=== PATIENT | male | born 1950 | race Caucasian/White ===

== ENCOUNTER 2019-04-26 13:48 | Inpatient (IN) | payer MEDICARE, OTHER, SELFPAY ==
[2019-04-06 12:20] VITALS: BP 120/78; PULSE 66; RESP 20; TEMP 36.7; O2SAT 94; BMI 34.8
[2019-04-26] VITALS (12 sets, daily range): BP systolic 124–148; BP diastolic 61–96; PULSE 68–86; RESP 13–20; TEMP 36.3–37.1; O2SAT 93–100
--- NOTE | ~2019-04-26 | XR_ITS ---
EXAMINATION: XR knee LT 2V DATE: 04/26/2019 14:14 INDICATION: Total left knee arthroplasty. Postop. TECHNIQUE: 2 views of left knee were obtained. COMPARISON: Left knee radiographs 04/10/2019 FINDINGS: There is a total left knee arthroplasty without patellar resurfacing in near-anatomic align ment. No fracture. There is gas in the knee joint and soft tissues, consistent with recent surgery. A nterior skin amadou are noted. IMPRESSION: 1. Total left knee arthroplasty in near-anatomic alignment. Reviewed, dictated and finalized at location A. RTMENT ASSISTANT
--- NOTE | ~2019-04-26 | XR_ITS ---
EXAMINATION: XR chest 2V EXAM DATE: 04/28/2019 12:31 INDICATION: Syncope. Chest congestion. TECHNIQUE: Frontal and lateral projections of the chest obtained and reviewed. Comparison is made to prior examination from 04/26/2019. FINDINGS: The lungs are clear. There are no pleural effusions. The cardiomediastinal silhouette is within normal limits. There is no pneumothorax suspected. There are mild bony degenerative changes. There is no significant interval change. IMPRESSION: No acute cardiopulmonary findings. Reviewed, dictated and finalized at location A. D REPRESENTATIVE/HEALTH EDUCATION
--- NOTE | ~2019-04-26 | XR_ITS ---
EXAMINATION: XR chest 2V DATE: 04/26/2019 10:43 INDICATION: Sleep apnea. Preop. TECHNIQUE: Frontal and lateral views of the chest were obtained. COMPARISON: None. FINDINGS: The chest demonstrates clear lungs without pneumonia, pleural effusion, or pneumothorax. Th e heart size is normal. There is a compression fracture of L1, likely chronic. IMPRESSION: 1. No acute cardiopulmonary disease. Reviewed, dictated and finalized at location A. RER
--- NOTE | 2019-04-26 07:42 | WPDHPUPDATE1 ---
History and Physical Update Update Date/Time: 04/26/19 07:42 History and Physical has been reviewed, including an updated exam of the patient. There are NO changes in the patient's condition. Risks, benefits, and alternatives have been discussed and questions answered. Patient agrees to proceed with procedure.
--- NOTE | 2019-04-26 08:52 | WPDANESEPPF ---
Anes - Initial Pre Proc Eval Procedure: Operation Date: 04/26/19 10:30 Proposed Procedures p Left Total Knee Arthroplasty - Garrett López MD Date/Time: 04/26/19 08:52 Surgeon: Garrett López MD Pre Op Diagnosis: Left Knee DJD Patient Data Age: 68 Gender: M Height: 5 ft 5 in Weight: 94.9 kg Last Vital Signs Temp 36.7 C 04/06/19 12:20 Pulse 66 04/06/19 12:20 Resp 20 04/06/19 12:20 BP 120/78 04/06/19 12:20 Pulse Ox 94 04/06/19 12:20 Allergies Allergy/AdvReac Type Severity Reaction Status Date / Time amoxicillin Allergy Unknown Other Verified 04/10/19 11:39 cyclobenzaprine AdvReac Unknown Other Verified 04/10/19 11:39 [From Flexeril] Ahnnmsn-Rjp-Wok Reductase AdvReac Unknown Joint Pain Verified 04/10/19 11:39 Inhibitor sulfamethoxazole AdvReac Unknown Nausea and Verified 04/10/19 11:39 Vomiting Home Medications Medication Instructions Recorded Confirmed Type diclofenac sodium 1 % topical gel 2 gm TOPICAL QID PRN #100 gm 03/13/19 04/06/19 Rx aspirin [Aspir-81] 81 mg PO DAILY 04/06/19 04/06/19 History cetirizine [Zyrtec] 10 mg PO DAILY 04/06/19 04/06/19 History ezetimibe 10 mg PO DAILY 04/06/19 04/06/19 History fluticasone propionate [Flonase 1 spray INTRANASAL BID PRN 04/06/19 04/06/19 History Allergy Relief] furosemide [Lasix] 20 mg PO DAILY 04/06/19 04/06/19 History glucosamine sulfate [Glucosamine] 1,000 mg PO DAILY 04/06/19 04/06/19 History hydrochlorothiazide 25 mg PO DAILY 04/06/19 04/06/19 History hydrocodone-acetaminophen 1 tablet PO Q6H PRN 04/06/19 04/06/19 History lisinopril 20 mg PO DAILY 04/06/19 04/06/19 History metaxalone 800 mg PO TID PRN 04/06/19 04/06/19 History naproxen sodium 440 mg PO DAILY 04/06/19 04/06/19 History omeprazole 40 mg PO DAILY 04/06/19 04/06/19 History pseudoephedrine-guaifenesin 1 tablet PO BID PRN 04/06/19 04/06/19 History [Mucinex D] sildenafil [Viagra] 100 mg PO DAILY PRN 04/06/19 04/06/19 History turmeric root extract 500 mg PO DAILY 04/06/19 04/06/19 History chlorhexidine gluconate 4 % 1 applic TOPICAL ONCE #3785 ml 04/10/19 04/10/19 Rx topical liquid mupirocin 2 % topical ointment 1 applic TOPICAL BID #15 gm 04/10/19 Rx Patient hx anesthesia problems: none Family hx anesthesia problems: none PMFSH Past Medical History Medical History (Updated 04/26/19 @ 08:52 by Po Walsh MD) Arthritis Bilateral knee pain Chronic GERD Degenerative joint disease of knee Recent URI Sleep apnea Vision abnormalities Family History Family History Unknown Cardiovascular disease Social History Social History Smoking status: Never smoker Alcohol intake: current Anes - Eval Final PreProcedure Day of Procedure 04/26/19 08:52 Patient weight: obese Heart: regular rate and rhythm Lungs: clear to auscultation and normal air movement Airway: Mallampati scale class II Neurological: alert and oriented Last oral intake: >/= 8 hours ASA classification: III Emergent: no Anesthetic plan: proceed Anesthesia type and monitoring: general ETT Informed Consent: The patient's anesthetic plan and its attendant risks and benefits were discussed with the patient/family/POA. Questions were solicited and answers provided to the satisfaction of the patient/family/POA.
[2019-04-26 09:06] LABS: Hematocrit 45.3 % (42.0-52.0); Hemoglobin 15.6 g/dL (14.0-18.0); Mean Corpuscular HGB Conc 34.4 g/dl (32-36); Mean Corpuscular Hemoglobin 30.8 pg (26-34); Mean Corpuscular Volume 89.3 fl (80-100); Platelet Count Result 172 k/mm3 (150-375); Red Blood Count 5.07 M/mm3 (4.6-6.20); Red Cell Distribution Width 12.6 % (11.5-14.5); White Blood Count 3.8 K/mm3 (4.5-10.0)
--- NOTE | 2019-04-26 09:15 | SUR.PREOP ---
08- PT STATED THAT HE WAS DIAGNOSED WITH A UPPER RESP INFECTION ON WEDNESDAY AND STATED LEVIQUIN PER PCP. PT STATED STILL HAVING SOME SYMPTOMS. DR. GUIDO UPDATED AND SPOKE WITH PT AND DR. PABLO. CBC ORDERED. 899- CBC SENT TO LAB. DR. PABLO WOULD LIKE TO SEE PT. PT AND UPDATED.
[2019-04-26] MEDS: LACTATED RINGERS 1,000 ML 30 ML IV CONT ×2 (11:00→14:00)
--- NOTE | 2019-04-26 11:08 | SUR.PREOP ---
1040- dr. wilson to see pt in pre op. wbc count normal. dr. wilson ordered a chest x ray. pt to x ray. 1100- chest x ray normal. pt to go to or. or updated.
[2019-04-26] MEDS: ceFAZolin 2 GM/D5W 50 ML 2 GM/50 ML BAG IVPB ×2 (11:41→17:19)
[2019-04-26] MEDS: IBUPROFEN IV 800 MG/200 ML 800 MG/200 ML BAG 400 MG IVPB (11:45)
[2019-04-26] MEDS: GENTAMICIN BONE CEMENT REFOBACIN 1 EACH TOPICAL (12:21)
--- NOTE | 2019-04-26 13:47 | PM.OP ---
Procedure Note - Brief Procedure Note - Brief Date of procedure: 04/26/19 Pre-op diagnosis: Left Knee DJD Post-op diagnosis: same Procedure performed: L TKA Anesthesia: GETA Surgeon: Garrett López MD Estimated blood loss (mL): 100 Drains: No Complications: No immediate complications Condition: stable Disposition: PACU
--- NOTE | 2019-04-26 14:59 | OP_ITS ---
DATE OF PROCEDURE: 04/26/2019 PREOPERATIVE DIAGNOSIS: Left knee DJD. POSTOPERATIVE DIAGNOSIS: Left knee DJD. PROCEDURE: Left knee arthroplasty. ANESTHESIA: General. COMPLICATIONS: None. INDICATIONS: This is a 68-year-old male with end-stage left knee DJD. He was indicated for left total knee arthroplasty. DESCRIPTION OF PROCEDURE: The patient was taken to the operating room in stable condition and placed in supine position. General anesthesia was induced and the left lower extremity was sterilely from the toes to the thigh. A midline skin incision was made. Medial parapatellar arthrotomy was made. The patella was everted. There was severe arthrosis in medial and lateral compartments of the knee joint and minimal in the patellofemoral joint. An IM dov was placed in the femur. A distal femoral cut was made removing approximately 9 mm of bone from the high side of the femur. Next, the cutting block was placed, it measured 67.5 and that was placed in line with Whitesides line in the transepicondylar axis and then anterior, posterior, and chamfer cuts were made to the femur. The cuts were excellent. Next, an IM dov was placed in tibia and a transtibial cut was made removing approximately 10 mm of bone from the high side of the tibia. The tibia was planed to a smooth surface. Posterior osteophytes were removed from the femur with an osteotome. A 79 tibial trial was placed in line with one-third medial aspect of the tibial tubercle. The surface area was flushed. Next, the 67.5 femoral trial was placed and it fit well in the femur. A 10 CR polyethylene trial was placed. The knee came out to full extension. There was no flexion contracture. There was no anterior-posterior laxity. There was good tracking of the patella. There was no excessive rollback in flexion. The trial instrumentation was removed, and then a Biomet 79 mm and 67.5 mm of tibial and femoral component were both cemented into place and once the cement was hardened, a tibial component measuring 10 CR was inserted and locked into place. The knee was taken through range of motion, found to be very stable. There was good stability with varus valgus stress. There was good anterior-posterior stability. The tracking of the patella was within normal limits. The wound was irrigated thoroughly with a solution of sterile iodine and water and that happened over the next 3 minutes or so. The mixture was then washed out with a sterile water. The tourniquet was deflated. The bleeders were cauterized. The deep fascial layer was approximated with #1 Vicryl plus subcutaneous tissue approximated with 2-0 Vicryl, and skin approximated with amadou. Wounds were washed, placed sterile dressing. The patient was extubated. Rolando I MT: Ashwin
[2019-04-26] MEDS: HYDROMORPHONE HCL 1 MG/ML INJ 0.5 MG IV PUSH ×2 (15:15→15:27)
[2019-04-26] MEDS: MORPHINE SULFATE 4 MG/ML INJ IV PUSH ×2 (16:16→22:10)
[2019-04-26] MEDS: DOCUSATE SODIUM 100 MG CAPSULE PO (17:18)
[2019-04-26] MEDS: CELECOXIB 200 MG CAPSULE PO (17:18)
--- NOTE | 2019-04-26 19:31 | ADMGEN ---
This patient, Servando Kendall, was admitted to [facility] Room 330-01. Patient/family oriented to hospital policies and general routines including ID bracelet, bed and alarms, visiting hours, pain management, procedures, bathroom and other care routines, personal items, smoking policy, room service/diet, and visiting hours. Valuables list has been completed. Information on how to activate the Rapid Response Team has been discussed. Patient/Family are encouraged to report perceived risks to care and to ask questions if they do not understand what they are told or what they should do. Returned from OR per [ BED C/O PAIN MEDICATED WITH MORPHINE MOVES TOES SENSATION NORMAL DRESSING DRY AND INTACT.]
[2019-04-26] MEDS: PANTOPRAZOLE 40 MG TABLET PO (21:18)
[2019-04-26] MEDS: DIAZEPAM 5 MG TABLET PO (22:10)
[2019-04-26] MEDS: ONDANSETRON INJ 4 MG/2 ML VIAL IV PUSH (22:10)
--- NOTE | 2019-04-27 00:09 | PM.IMCN ---
Assessment and Plan Assessment and plan (1) Total knee replacement status: Code(s): Z96.659 - Presence of unspecified artificial knee joint Status: Acute Assessment and Plan: Postop care per Dr. López. Patient has bilateral SCDs on. Varun wrap to the left. Pain management per Dr. López. The patient has been continued to complain of some discomfort. I would try to reposition him and feel that is more of a sciatic pain that is going down the left leg. DVT prophylaxis per ortho. He has bilateral SCDs (2) HTN (hypertension) with goal to be determined: Code(s): I10 - Essential (primary) hypertension Status: Chronic Assessment and Plan: Continue with lisinopril and Lasix. (3) Hyperlipidemia: Code(s): E78.5 - Hyperlipidemia, unspecified Status: Chronic Assessment and Plan: Patient was having some cramping in his legs with atorvastatin and was taken off of that. He is on Zetia (4) Sleep apnea: Code(s): G47.30 - Sleep apnea, unspecified Status: Acute Assessment and Plan: Patient brought his own CPAP. HPI Data of Consult Consult date: 04/26/19 Requesting Physician: Garrett López MD Primary Care Provider: Yasmeen Krishna, Consult Narrative Narrative: Servando Kendall is a 68 year old male who electively underwent a left total knee arthroplasty today per Dr. López. The patient stated he tried conservative measures such as anti-inflammatories. The patient is complaining of some left knee pain at this time. He also complains having left sciatica pain as well. Please see operative note. Patient had some cramping in his legs in the past and was taken off of his atorvastatin and placed on different cholesterol medication. He stated it has been better since then. Date of service is 04/26/2019 Review of Systems Review of Systems: Narrative: He has sleep apnea brought his CPAP machine All systems reviewed & are unremarkable except as noted in HPI and below Constitutional: Constitutional: Reports as per HPI and Reports no additional constitutional complaints Eyes: Eyes: Reports as per HPI and Reports no additional eye complaints ENT: Reports system reviewed and no additional complaints, except as documented and Reports Normal hearing present Cardiovascular: Cardiovascular: Reports no additional cardiovascular complaints Respiratory: Respiratory: Reports no additional respiratory complaints and Reports no additional respiratory complaints Gastrointestinal: Gastrointestinal: Reports as per HPI and Reports no additional gastrointestinal complaints Musculoskeletal: Musculoskeletal: Reports no additional musculoskeletal complaints Integumentary/Breasts: Skin/Breast: Reports system reviewed and no additional complaints, except as docu and Reports as per HPI Neurologic: Reports system reviewed and no additional complaints, except as documented, Reports as per HPI and Reports Normal hearing present Psychiatric: Psychiatric: Reports no additional psychiatric complaints and Reports as per HPI Endocrine: Endocrine: Reports no additional endocrine complaints Hematologic/Lymphatic: Hematologic/Lymphatic: Reports no additional hematologic/lymphatic complaints Allergic/Immunologic: Allergic/Immunologic: Reports no additional allergic/immunologic complaints [facility] Past Medical History Medical History (Updated 04/27/19 @ 00:28 by Emily Ortez NP) Arthritis Bilateral knee pain CAD (coronary artery disease) Chronic GERD Degenerative joint disease of knee GERD with apnea Herniated lumbar intervertebral disc HTN (hypertension) with goal to be determined Hyperlipidemia Recent URI Sleep apnea Vision abnormalities Surgical History Surgical History (Updated 04/27/19 @ 00:28 by Emily Ortez NP) H/O vasectomy With a vasovasostomy Total knee replacement status Family History Family History (Updated 04/27/19 @ 00:31 by Emily Crowder
[2019-04-27] MEDS: MORPHINE SULFATE 4 MG/ML INJ IV PUSH ×2 (00:33→04:56)
[2019-04-27 01:25] VITALS: PULSE 74; O2SAT 96
[2019-04-27] MEDS: ceFAZolin 2 GM/D5W 50 ML 2 GM/50 ML BAG IVPB ×2 (03:20→10:58)
[2019-04-27] MEDS: DIAZEPAM 5 MG TABLET PO ×2 (06:28→14:46)
[2019-04-27 06:52] VITALS: BP 168/96; PULSE 69; RESP 18; TEMP 36.4; O2SAT 96
[2019-04-27 07:07] LABS: Basophils Percent Auto 0.1 % (0.2-1.2); Eosinophils Percent Auto 0.2 % (0-4.4); Hematocrit 42.4 % (42.0-52.0); Hemoglobin 14.4 g/dL (14.0-18.0); Immature Granulocyte Absolute 0.02 K/mm3 (0.00-0.031); Immature Granulocyte Percent A 0.2 % (0-0.5); Lymphocytes Absolute Auto 1.21 K/mm3 (0.9-3.2); Lymphocytes Percent Auto 13.6 % (18.3-44.2); Mean Corpuscular Hemoglobin 30.8 pg (26-34); Mean Corpuscular Volume 90.8 fl (80-100); Mean Platelet Volume 10.1 fl (7.4-10.4); Neutrophils Absolute Auto 6.6 K/mm3 (1.3-6.7); Neutrophils Percent Auto 74.9 % (45.5-73.1); Platelet Count Result 177 k/mm3 (150-375); Red Blood Count 4.67 M/mm3 (4.6-6.20); Red Cell Distribution Width 12.4 % (11.5-14.5); White Blood Count 8.9 K/mm3 (4.5-10.0)
[2019-04-27 07:07] LABS: Blood Urea Nitrogen 16 mg/dL (9-20); Calcium 8.9 mg/dL (8.4-10.2); Carbon Dioxide 27 mmol/L (22-30); Chloride 97 mmol/L (98-107); Estimated CRCL calculation 64 ml/min; Estimated Glomerular Filt Rate > 60; Glucose 120 mg/dL (75-110); Potassium 4.1 mmol/L (3.4-5.0); Sodium 132 mmol/L (137-145)
[2019-04-27 07:08] LABS: Magnesium 1.9 mg/dL (1.6-2.3)
[2019-04-27] MEDS: CELECOXIB 200 MG CAPSULE PO ×2 (08:31→16:55)
[2019-04-27] MEDS: DOCUSATE SODIUM 100 MG CAPSULE PO ×2 (08:31→16:55)
[2019-04-27] MEDS: ASPIRIN 325 MG ENTERIC TABLET 650 MG PO (08:31)
[2019-04-27 08:33] VITALS: BP 127/70; PULSE 91; RESP 18; O2SAT 98
--- NOTE | 2019-04-27 08:34 | PC.NURSE ---
Pt refused to take our meds. He took his own Protonix, Zetia, Lasix, HCTZ, Lisinopril.
--- NOTE | 2019-04-27 09:54 | P.PNOP_ITS ---
Progress Note: A&P Assessment and Plan (1) Total knee replacement status: Qualifiers: Laterality: left Qualified Code(s): Z96.652 - Presence of left artificial knee joint <Sarah Doll ELDERLY SITTER - Last Filed: 04/27/19 11:46> Code(s): Z96.659 - Presence of unspecified artificial knee joint <Sarah Dallasheri [facility] - Last Filed: 04/27/19 11:46> Status: Acute <Sarah Doll [facility] - Last Filed: 04/27/19 11:46> Assessment and Plan: POD #1: Left TKA Continue PT/OT. WBAT with walker. Continue pain control. Ice. No pillows under knee. Continue DVT prophylaxis with aspirin. Incentive spirometry. SCDs. Monitor dressing. To be changed prior to discharge. Dispo: Home with home health pending progress with PT/OT. <Sarah Haynes Lavon [facility] - Last Filed: 04/27/19 11:46> Subjective Subjective Date/Time Seen: 04/27/19 09:54 <Sarah Dallasheri [facility] - Last Filed: 04/27/19 11:46> Post Op day: 1 <Sarah Haynes Lavon ELDERLY SITTER - Last Filed: 04/27/19 11:46> Principal diagnosis: Left TKA <Sarah Dallasheri [facility] - Last Filed: 04/27/19 11:46> Review of Systems Review of Systems: All systems reviewed & are unremarkable except as noted in HPI and below <Sarah RiosIvis Doll ELDERLY SITTER - Last Filed: 04/27/19 11:46> Constitutional: Constitutional: Denies chills, Denies fever(s) and Denies night sweats <Saarh Haynes Lavon [facility] - Last Filed: 04/27/19 11:46> Cardiovascular: Cardiovascular: Denies chest pain and Denies lightheadedness <Sarah Dallasheri [facility] - Last Filed: 04/27/19 11:46> Respiratory: Respiratory: Denies cough and Denies dyspnea <Sarah RiosIvis Doll [facility] - Last Filed: 04/27/19 11:46> Gastrointestinal: Gastrointestinal: Denies constipation, Denies diarrhea, Denies nausea and Denies vomiting <Sarah Doll [facility] - Last Filed: 04/27/19 11:46> Genitourinary: Genitourinary: Reports urinary frequency and Denies urinary hesitancy <Sarah Doll [facility] - Last Filed: 04/27/19 11:46> Musculoskeletal: Musculoskeletal: Reports arthralgias (Left Knee ), Reports joint swelling (Left Knee ), Denies numbness and Denies tingling <Sarah Doll [facility] - Last Filed: 04/27/19 11:46> Exam Const: General: comfortable and no acute distress <Sarah Doll [facility] - Last Filed: 04/27/19 11:46> Resp: Effort & Inspection: normal respiratory effort <Sarah Doll [facility] - Last Filed: 04/27/19 11:46> Cardio: Rate: regular rate <Sarah Doll [facility] - Last Filed: 04/27/19 11:46> Rhythm: regular rhythm <Sarah Doll [facility] - Last Filed: 04/27/19 11:46> GI: Inspection: non-distended <Sarah Doll [facility] - Last Filed: 04/27/19 11:46> Skin: General skin exam: normal color <Sarah Doll [facility] - Last Filed: 04/27/19 11:46> Neuro: Cognition (Neuro): normal cognition <Sarah Doll [facility] - Last Filed: 04/27/19 11:46> Sensory Exam: normal sensation <Sarah Doll [facility] - Last Filed: 04/27/19 11:46> Extrem: Right lower extremity: normal to inspection, full ROM, normal capillary refill and knee Details: normal to inspection and normal ROM; no tenderness and no swelling <Sarah Doll [facility] - Last Filed: 04/27/19 11:46> Left lower extremity: normal to inspection, normal capillary refill, knee Details: tenderness (Diffuse ), swelling (Mild consistent with recent surgery ) and abnormal ROM (limited due to recent surgical intervention. ) and foot (2+ pedal pulses. +ankle dorsiflexion/plantarflexion. Moves toes. ) Details: normal capillary refill, vascular exam Details: dorsalis pedis pulse present and sales vendor
--- NOTE | 2019-04-27 09:54 | PM.PNORT ---
Progress Note: A&P Assessment and Plan (1) Total knee replacement status: Qualifiers: Laterality: left Qualified Code(s): Z96.652 - Presence of left artificial knee joint <Sarah Doll GAMBRELER HELPER - Last Filed: 04/27/19 11:46> Code(s): Z96.659 - Presence of unspecified artificial knee joint <Sarah Dallasheri [facility] - Last Filed: 04/27/19 11:46> Status: Acute <Sarah Doll [facility] - Last Filed: 04/27/19 11:46> Assessment and Plan: POD #1: Left TKA Continue PT/OT. WBAT with walker. Continue pain control. Ice. No pillows under knee. Continue DVT prophylaxis with aspirin. Incentive spirometry. SCDs. Monitor dressing. To be changed prior to discharge. Dispo: Home with home health pending progress with PT/OT. <Sarah Haynes Lavon [facility] - Last Filed: 04/27/19 11:46> Subjective Subjective Date/Time Seen: 04/27/19 09:54 <Sarah Dallasheri [facility] - Last Filed: 04/27/19 11:46> Post Op day: 1 <Sarah Haynes Lavon GAMBRELER HELPER - Last Filed: 04/27/19 11:46> Principal diagnosis: Left TKA <Sarah Dallasheri [facility] - Last Filed: 04/27/19 11:46> Review of Systems Review of Systems: All systems reviewed & are unremarkable except as noted in HPI and below <Sarah RiosIvis Doll GAMBRELER HELPER - Last Filed: 04/27/19 11:46> Constitutional: Constitutional: Denies chills, Denies fever(s) and Denies night sweats <Sarah Haynes Lavon [facility] - Last Filed: 04/27/19 11:46> Cardiovascular: Cardiovascular: Denies chest pain and Denies lightheadedness <Sarah Dallasheri [facility] - Last Filed: 04/27/19 11:46> Respiratory: Respiratory: Denies cough and Denies dyspnea <Sarah RiosIvis Doll [facility] - Last Filed: 04/27/19 11:46> Gastrointestinal: Gastrointestinal: Denies constipation, Denies diarrhea, Denies nausea and Denies vomiting <Sarah Doll [facility] - Last Filed: 04/27/19 11:46> Genitourinary: Genitourinary: Reports urinary frequency and Denies urinary hesitancy <Sarah Doll [facility] - Last Filed: 04/27/19 11:46> Musculoskeletal: Musculoskeletal: Reports arthralgias (Left Knee ), Reports joint swelling (Left Knee ), Denies numbness and Denies tingling <Sarah Doll [facility] - Last Filed: 04/27/19 11:46> Exam Const: General: comfortable and no acute distress <Sarah Doll [facility] - Last Filed: 04/27/19 11:46> Resp: Effort & Inspection: normal respiratory effort <Sarah Doll [facility] - Last Filed: 04/27/19 11:46> Cardio: Rate: regular rate <Sarah Doll [facility] - Last Filed: 04/27/19 11:46> Rhythm: regular rhythm <Sarah Doll [facility] - Last Filed: 04/27/19 11:46> GI: Inspection: non-distended <Sarah Doll [facility] - Last Filed: 04/27/19 11:46> Skin: General skin exam: normal color <Sarah Doll [facility] - Last Filed: 04/27/19 11:46> Neuro: Cognition (Neuro): normal cognition <Sarah Doll [facility] - Last Filed: 04/27/19 11:46> Sensory Exam: normal sensation <Sarah Doll [facility] - Last Filed: 04/27/19 11:46> Extrem: Right lower extremity: normal to inspection, full ROM, normal capillary refill and knee Details: normal to inspection and normal ROM; no tenderness and no swelling <Sarah Doll [facility] - Last Filed: 04/27/19 11:46> Left lower extremity: normal to inspection, normal capillary refill, knee Details: tenderness (Diffuse ), swelling (Mild consistent with recent surgery ) and abnormal ROM (limited due to recent surgical intervention. ) and foot (2+ pedal pulses. +ankle dorsiflexion/plantarflexion. Moves toes. ) Details: normal capillary refill, vascular exam Details: dorsalis pedis pulse present and posterior tibial pulse present and motor-sensory exam light-touch normal; no tenderness <GUSTAVO Dumas - Last Filed: 04/27/19 11:46> Other: Left TKA dressing c/d/i. Thigh soft, nontender. +ankle dorsiflexion/plantarflexion. Moves toes. Sensation intact to light touch. <GUSTAVO Dumas - Last Filed: 04/27/19 11:46> Psych: Mental Status: mental status grossly normal <GUSTAVO Dumas - Last Filed: 04/27/19 11:46> Affec
--- NOTE | 2019-04-27 13:17 | WPDANESPN ---
Anes - Prog Note Post-Op Date/Time: 04/27/19 13:17 Cardiovascular status: normal Respiratory status: normal Airway patency: baseline Mental status: baseline Post-Op hydration status: normal Vital Signs: Last Vital Signs Temp 36.4 C 04/27/19 06:52 Pulse 91 04/27/19 08:33 Resp 18 04/27/19 08:33 BP 127/70 04/27/19 08:33 Pulse Ox 98 04/27/19 08:33 I/O: Intake & Output 04/26/19 04/27/19 04/27/19 23:59 07:59 15:59 Intake Total 450 1070 120 Output Total 1100 Balance 450 -30 120 Laboratory Tests 04/27/19 06:48 04/27/19 06:47 04/27/19 04/27/19 04/27/19 06:47 06:47 06:48 WBC 8.9 RBC 4.67 Hgb 14.4 Hct 42.4 MCV 90.8 MCH 30.8 MCHC 34.0 RDW 12.4 Plt Count 177 MPV 10.1 Immature Gran % (Auto) 0.2 Neut % (Auto) 74.9 H Lymph % (Auto) 13.6 L Lamar % (Auto) 11.0 H Eos % (Auto) 0.2 Baso % (Auto) 0.1 L Lymph # (Auto) 1.21 Lamar # (Auto) 1.0 H Eos # (Auto) 0.0 Baso # (Auto) 0.0 Abs Immat Gran (auto) 0.02 Absolute Neuts (auto) 6.6 Absolute Nucleated RBC 0.0 Nucleated RBC % 0.0 Sodium 132 L Potassium 4.1 Chloride 97 L Carbon Dioxide 27 BUN 16 Creatinine 1.00 Estim Creat Clear Calc 64 Estimated GFR > 60 Glucose 120 H Calcium 8.9 Magnesium 1.9 Post-procedural complaints: none Patient Feedback: Patient satisfied with anesthetic care.
[2019-04-27 14:00] VITALS: BP 116/66; PULSE 83; RESP 18; TEMP 36.6; O2SAT 97
--- NOTE | 2019-04-27 15:07 | PM.IMPN ---
Progress Note: A&P Assessment and Plan (1) Total knee replacement status: Qualifiers: Laterality: left Qualified Code(s): Z96.652 - Presence of left artificial knee joint Code(s): Z96.659 - Presence of unspecified artificial knee joint Status: Acute Assessment and Plan: Postop care day 1, pt having severe left knee pain, pt received morphine shots in the night, states he never got a nerve block may benefit from one now. Pt is having diazepam for leg cramps, morphine and percocet for pain. Continue ASA for anticoagulation. Continue PT as tolerated. [place] home tomorrow with home health. (2) HTN (hypertension) with goal to be determined: Code(s): I10 - Essential (primary) hypertension Status: Chronic Assessment and Plan: Continue with lisinopril and Lasix. (3) Hyperlipidemia: Code(s): E78.5 - Hyperlipidemia, unspecified Status: Chronic Assessment and Plan: Pt is on Zetia (4) Sleep apnea: Code(s): G47.30 - Sleep apnea, unspecified Status: Acute Assessment and Plan: Patient brought his own CPAP. Used his machine yesterday. Subjective Date/time seen: 04/27/19 15:07 Interval history: Servando Kendall is a 68 year old male who electively underwent a left total knee arthroplasty today per Dr. López. Pt is in a lot of pain states he never received a nerve block prior to surgery so has been receiving morphine shots throughout the night. May benefit from a nerve block now, orthopedics deciding. Review of Systems Review of Systems: All systems reviewed & are unremarkable except as noted in HPI and below Cardiovascular: Cardiovascular: Denies no additional cardiovascular complaints Respiratory: Respiratory: Denies no additional respiratory complaints, Denies cough, Denies dyspnea and Denies dyspnea on exertion Gastrointestinal: Gastrointestinal: Denies no additional gastrointestinal complaints Musculoskeletal: Musculoskeletal: Reports as per HPI Comments: Severe knee pain Neurologic: Denies confusion, Denies headache(s) and Denies numbness Exam Const: General: cooperative and healthy appearing; No in distress Nutritional Appearance: overweight Orientation/consciousness: oriented to person HENMT: Head: normal to inspection Resp: Effort & Inspection: no respiratory distress Auscultation: no rhonchi and no wheezes Cardio: Rate: regular rate Rhythm: regular rhythm GI: Inspection: normal to inspection GI Palp: No abdominal tenderness, No Guarding due to palpation present (GI) and No Hepatomegaly present Auscultation: normal bowel sounds Neuro: General: oriented to person Extrem: Other: Left knee with polar ice machine on Objective Data Vital Signs Vital Signs: Vital Signs - 24 hr 04/26/19 15:30 04/26/19 15:45 04/26/19 16:15 Temperature Pulse Rate 71 71 70 Respiratory Rate 16 16 16 Blood Pressure 143/77 H 140/96 H 138/68 Pulse Oximetry 94 94 95 04/26/19 19:02 04/26/19 21:51 04/27/19 01:25 Temperature 36.9 C 36.7 C Pulse Rate 68 86 74 Respiratory Rate 16 16 Blood Pressure 138/61 141/75 H Pulse Oximetry 95 98 96 04/27/19 06:52 04/27/19 08:33 04/27/19 14:00 Temperature 36.4 C 36.6 C Pulse Rate 69 91 83 Respiratory Rate 18 18 18 Blood Pressure 168/96 H 127/70 116/66 Pulse Oximetry 96 98 97 Intake/Output Intake/Output: Intake & Output 04/24/19 04/25/19 04/26/19 04/27/19 23:59 23:59 23:59 23:59 Intake Total 2300 1430 Output Total 1100 Balance 2300 330 Meds/Results Medications: Active Medications Generic Name Dose Route Start Last Admin Trade Name Freq PRN Reason Stop Dose Admin Acetaminophen 1,000 mg 04/26/19 13:48 Tylenol Tablet PO Q6H PRN Mild Pain (1-3) Aspirin 650 mg 04/27/19 09:00 04/27/19 08:31 Aspirin Ec PO 650 mg DAILY [facility] Administration Celecoxib 200 mg 04/26/19 17:00 04/27/19 08:31 Celebrex PO 200 mg BIDWM [facility] Admi
[2019-04-27 20:12] VITALS: PULSE 80; RESP 16; O2SAT 97
[2019-04-27 20:18] VITALS: BMI 34.2
[2019-04-27] MEDS: PANTOPRAZOLE 40 MG TABLET PO (20:52)
[2019-04-27 22:21] VITALS: BP 140/73; PULSE 75; RESP 16; TEMP 37; O2SAT 95
[2019-04-28] VITALS (11 sets, daily range): BP systolic 102–142; BP diastolic 58–79; PULSE 70–100; RESP 16; TEMP 37.1; O2SAT 93–98; BMI 34.2
[2019-04-28] MEDS: DIAZEPAM 5 MG TABLET PO ×3 (02:02→21:03)
[2019-04-28 06:35] LABS: Hematocrit 41.2 % (42.0-52.0); Hemoglobin 13.7 g/dL (14.0-18.0); Mean Corpuscular HGB Conc 33.3 g/dl (32-36); Mean Corpuscular Hemoglobin 30.9 pg (26-34); Mean Platelet Volume 10.4 fl (7.4-10.4); Platelet Count Result 156 k/mm3 (150-375); Red Blood Count 4.43 M/mm3 (4.6-6.20); Red Cell Distribution Width 12.7 % (11.5-14.5); White Blood Count 7.1 K/mm3 (4.5-10.0)
[2019-04-28 06:51] LABS: Blood Urea Nitrogen 16 mg/dL (9-20); Calcium 8.7 mg/dL (8.4-10.2); Carbon Dioxide 30 mmol/L (22-30); Chloride 96 mmol/L (98-107); Estimated CRCL calculation 70 ml/min; Estimated Glomerular Filt Rate > 60; Glucose 137 mg/dL (75-110); Potassium 3.8 mmol/L (3.4-5.0); Sodium 136 mmol/L (137-145)
[2019-04-28 09:01] LABS: Glucose Point of Care 137 (65-105)
--- NOTE | 2019-04-28 09:29 | PCPTNOTE ---
Patient unable to be seen by PT this AM secondary to near rapid response while sitting on toilet with OT, RN aware, will follow up this afternoon if treatment is appropriate.
[2019-04-28] MEDS: CELECOXIB 200 MG CAPSULE PO ×2 (09:42→18:06)
--- NOTE | 2019-04-28 11:48 | ECG_ITS ---
Measurements Intervals [place] Rate: 81 P: 41 [place]: 170 QRS: 16 QRSD: 95 T: 8 QT: 376 QTc: 438 Interpretive Statements SINUS RHYTHM NORMAL ECG Electronically Signed On 04-28-2019 13:03:49 [employer] by Michael Larios D.O.
--- NOTE | 2019-04-28 11:51 | PM.IMPN ---
Progress Note: A&P Assessment and Plan (1) Vasovagal syncope: Code(s): R55 - Syncope and collapse Status: Acute Assessment and Plan: Suspect this was vasovagal related to the pain. Will check EKG and CXR. Place on tele. Will monitor for now. EKG and CXR reviewed personally. CXR clear. EKG normal. (2) Total knee replacement status: Qualifiers: Laterality: left Qualified Code(s): Z96.652 - Presence of left artificial knee joint Code(s): Z96.659 - Presence of unspecified artificial knee joint Status: Acute Assessment and Plan: POD #2. Patient still with severe left knee pain that appears to be limiting his therapy. Instructed RN to contact primary team to discuss other pain managment options. Continue ASA for anticoagulation. Continue PT/OT as tolerated. (3) HTN (hypertension) with goal to be determined: Code(s): I10 - Essential (primary) hypertension Status: Chronic Assessment and Plan: BP reviewed on 04/28/19. BP well controlled. Continue with HCTZ, lisinopril and Lasix. (4) Hyperlipidemia: Code(s): E78.5 - Hyperlipidemia, unspecified Status: Chronic Assessment and Plan: Stable. Zetia resumed. Can't take statins due to leg cramps. (5) Sleep apnea: Code(s): G47.30 - Sleep apnea, unspecified Status: Acute Assessment and Plan: Patient complaint with CPAP. Continue the same. Subjective Date/time seen: 04/28/19 10:00 Interval history: 68yo male here for an elective left TKA on 04/26/19. Assuming care. Chart reviewed. Called to the room because the patient had a syncopal episode. Patient is having considerable knee pain 10++/10. He walked to the BR this morning and sat on the toilet. He denies that he was straining. He began to sweat and patient moved to where he had a syncopal episode. No seizure activity. Patient had improvement once he was put back into bed. no post-event confusion. Episode lasted about 20 seconds. Patient denies any CP or palpitations. Had nauseas earlier but was able to toelrate some breakfst. +flatus but no BM yet. Does not wear O2 at home. Compliant with CPAP. Last stress test <1 year ago was normal. Exam Narrative: Exam Narrative: Gen - NARD lying semi-recumbent in bed Chest - CTA bilat, nml RR CV - RRR S1/S2 Abd - soft, NT/ND, +BS Ext - Left LE VERNON wrapped. Neuro - nonfocal, AOx4. Nml sensation to the left toes Skin - warm and dry Objective Data Vital Signs Vital Signs: Vital Signs - 24 hr 04/27/19 14:00 04/27/19 20:12 04/27/19 22:21 Temperature 97.8 F 98.6 F Pulse Rate 83 80 75 Respiratory Rate 18 16 16 Blood Pressure 116/66 140/73 Pulse Oximetry 97 97 95 04/28/19 03:41 04/28/19 05:59 04/28/19 08:54 Temperature 98.7 F Pulse Rate 75 77 86 Respiratory Rate 16 Blood Pressure 129/79 115/65 Pulse Oximetry 97 97 98 04/28/19 09:00 04/28/19 10:52 Temperature Pulse Rate 84 70 Respiratory Rate Blood Pressure 127/75 Pulse Oximetry 97 Intake/Output Intake/Output: Intake & Output 04/25/19 04/26/19 04/27/19 04/28/19 23:59 23:59 23:59 23:59 Intake Total 2300 2310 790 Output Total 2550 900 Balance 2300 -240 -110 Meds/Results Medications: Active Medications Generic Name Dose Route Start Last Admin Trade Name Freq PRN Reason Stop Dose Admin Acetaminophen 1,000 mg 04/28/19 12:00 Tylenol Tablet PO Q6H [facility] Aspirin 650 mg 04/27/19 09:00 04/27/19 08:31 Aspirin Ec PO 650 mg DAILY [facility] Administration Celecoxib 200 mg 04/26/19 17:00 04/28/19 09:42 Celebrex PO 200 mg BIDWM [facility] Administration Diazepam 5 mg 04/26/19 13:48 04/28/19 09:42 Valium Po PO 5 mg Q8H PRN Administration Spasms Diphenhydramine HCl 25 mg 04/26/19 13:48 04/27/19 00:20 Benadryl Inj IV PUSH 25 mg Q6H PRN Administration Itching Docusate Sodium 100 mg 04/26/19 17:00
[2019-04-28] MEDS: ACETAMINOPHEN 500 MG TABLET 1000 MG PO ×3 (12:41→23:27)
[2019-04-28] MEDS: ASPIRIN 325 MG ENTERIC TABLET 650 MG PO (12:42)
[2019-04-28] MEDS: DOCUSATE SODIUM 100 MG CAPSULE PO ×2 (12:42→18:06)
--- NOTE | 2019-04-28 16:09 | PC.NURSE ---
Pt refused most of his 0900 Rx. I asked him a couple times to take them. Notfied Dr Aguiar of refusal.
[2019-04-28] MEDS: PANTOPRAZOLE 40 MG TABLET PO (21:04)
[2019-04-29] VITALS (13 sets, daily range): BP systolic 108–133; BP diastolic 65–76; PULSE 69–108; RESP 16–20; TEMP 36.4–37.2; O2SAT 92–99; BMI 34.2
[2019-04-29] MEDS: ACETAMINOPHEN 500 MG TABLET 1000 MG PO ×4 (05:52→23:25)
[2019-04-29] MEDS: DOCUSATE SODIUM 100 MG CAPSULE PO ×2 (08:28→17:20)
[2019-04-29] MEDS: hydroCHLOROthiazide 25 MG TABLET PO (08:28)
[2019-04-29] MEDS: PANTOPRAZOLE 40 MG TABLET PO ×2 (08:28→21:24)
[2019-04-29] MEDS: ASPIRIN 325 MG ENTERIC TABLET 650 MG PO (08:28)
[2019-04-29] MEDS: FUROSEMIDE 20 MG TABLET PO (08:28)
[2019-04-29] MEDS: EZETIMIBE 10 MG TABLET PO (08:28)
[2019-04-29] MEDS: lisinopriL 20 MG TABLET PO (08:29)
[2019-04-29] MEDS: CELECOXIB 200 MG CAPSULE PO ×2 (08:29→17:21)
--- NOTE | 2019-04-29 08:30 | PM.IMPN ---
Progress Note: A&P Assessment and Plan (1) Vasovagal syncope: Code(s): R55 - Syncope and collapse Status: Acute Assessment and Plan: Suspect this was vasovagal related to the pain. CXR clear. EKG normal. Tele okay. Continue to monitor. Okay to stop tele. Called by the RN about 10-15 minutes after my visit. Patient while in the chair developed LH and nausea. He was moved to bed. VSS. No CP. He states he has NOT had a stress test in the past year but Echo only. Last stress test was about 8 years ago. Echo in the chart fro October showing EF 65% with DD grade 1. He also provides hx of recurrent episodes at home over the years with nausea and LH requiring him to lay down with legs elevated. He gets these episodes one every 2 months on average but only had one episode of passing out. Upon entering the room, the patient lying flat with legs elevated. Sx have passed. Mild sinus tach on tele. Lungs clear, RRR S1/S2. Could have chronic vasovagal near-syncope. Will need to go slow with therapy. (2) Total knee replacement status: Qualifiers: Laterality: left Qualified Code(s): Z96.652 - Presence of left artificial knee joint Code(s): Z96.659 - Presence of unspecified artificial knee joint Status: Acute Assessment and Plan: POD #3. Patient's pain much improved today. Tolerating therapy better. Continue ASA for anticoagulation. Continue PT/OT as tolerated. (3) HTN (hypertension) with goal to be determined: Code(s): I10 - Essential (primary) hypertension Status: Chronic Assessment and Plan: BP reviewed on 04/29/19. BP well controlled. Continue with HCTZ, lisinopril and Lasix. (4) Hyperlipidemia: Code(s): E78.5 - Hyperlipidemia, unspecified Status: Chronic Assessment and Plan: Stable. Zetia resumed. Can't take statins due to leg cramps. (5) Sleep apnea: Code(s): G47.30 - Sleep apnea, unspecified Status: Acute Assessment and Plan: Patient complaint with CPAP. Continue the same. Subjective Date/time seen: 04/29/19 08:30 Interval history: 68yo male here for an elective left TKA on 04/26/19. Feels much better. Pain much better controlled. No CP or lightheadedness when standing. Eating okay. Patient able to walk to the bathroom with therapy. Exam Narrative: Exam Narrative: Gen Severino SÁNCHEZ standing at the sink with therapy Chest - CTA bilat, nml RR CV - RRR S1/S2: Tele showing no significant dysrhythmias Abd - soft, NT/ND, +BS Ext - Left [place] wrapped. No right LE edema Neuro - nonfocal. Patient able to walk back to the chair with walker with standby assist. Skin - warm and dry Objective Data Vital Signs Vital Signs: Vital Signs - 24 hr 04/28/19 08:54 04/28/19 09:00 04/28/19 10:52 Temperature Pulse Rate 86 84 70 Respiratory Rate Blood Pressure 115/65 127/75 Pulse Oximetry 98 97 04/28/19 12:00 04/28/19 15:25 04/28/19 16:00 Temperature 98.7 F Pulse Rate 70 98 100 Respiratory Rate 16 Blood Pressure 142/70 H Pulse Oximetry 97 04/28/19 20:10 04/28/19 22:00 04/28/19 22:20 Temperature 98.7 F Pulse Rate 84 81 81 Respiratory Rate 16 16 Blood Pressure 102/58 L Pulse Oximetry 93 97 97 04/29/19 00:00 04/29/19 04:00 04/29/19 05:05 Temperature Pulse Rate 72 69 77 Respiratory Rate Blood Pressure Pulse Oximetry 96 04/29/19 06:46 Temperature 98.9 F Pulse Rate 78 Respiratory Rate 20 Blood Pressure 133/65 Pulse Oximetry 99 Intake/Output Intake/Output: Intake & Output 04/26/19 04/27/19 04/28/19 04/29/19 23:59 23:59 23:59 23:59 Intake Total 2300 2310 2030 450 Output Total 2550 1600 Balance 2300 -240 430 450 Meds/Results Medications: Active Medications Generic Name Dose Route Start Last Admin Trade Name Freq PRN Reason Stop Dose Admin Acetaminophen 1,000 mg 04/28/19 12:00 04/29/19 05:52 Tylenol Tablet P
--- NOTE | 2019-04-29 10:47 | PM.PNORT ---
Progress Note: A&P Additional Plan POD 3 WITH SLOW PROGRESS. BUT IMPROVING. HE WILL BE DISCHARGED TO REHAB TODAY. HE WILL F/U IN 3 WEEKS.. ECASA 2 TABS PER DAY FOR DVT PROPHYLAXIS Time Spent With Patient Time with patient: 15 - 25 minutes Subjective Subjective Date/Time Seen: 04/29/19 10:47 Post Op day: 3 (DOING WELL IMPROVING NO SOB OR CP.) Exam Extrem: Other: POD3 DOING WELL. HAD SYNCOPOL EPISODE TODAY VERY TRANSIENT. NO OTHER COMPLAINTS. NO CP OR SOB. NO CALF PAIN. 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 Objective Data Vital Signs Vital Signs: Vital Signs - 24 hr 04/28/19 10:52 04/28/19 12:00 04/28/19 15:25 Temperature 37.1 C Pulse Rate 70 70 98 Respiratory Rate 16 Blood Pressure 142/70 H Pulse Oximetry 97 04/28/19 16:00 04/28/19 20:10 04/28/19 22:00 Temperature 37.1 C Pulse Rate 100 84 81 Respiratory Rate 16 16 Blood Pressure 102/58 L Pulse Oximetry 93 97 04/28/19 22:20 04/29/19 00:00 04/29/19 04:00 Temperature Pulse Rate 81 72 69 Respiratory Rate Blood Pressure Pulse Oximetry 97 04/29/19 05:05 04/29/19 06:46 04/29/19 08:35 Temperature 37.2 C 36.4 C Pulse Rate 77 78 104 H Respiratory Rate 20 18 Blood Pressure 133/65 133/76 Pulse Oximetry 96 99 96 Intake/Output Intake/Output: Intake & Output 04/26/19 04/27/19 04/28/19 04/29/19 23:59 23:59 23:59 23:59 Intake Total 2300 2310 2030 790 Output Total 2550 1600 Balance 2300 -240 430 790 Meds/Results Medications: Active Medications Generic Name Dose Route Start Last Admin Trade Name Freq PRN Reason Stop Dose Admin Acetaminophen 1,000 mg 04/28/19 12:00 04/29/19 05:52 Tylenol Tablet PO 1,000 mg Q6H [facility] Administration Aspirin 650 mg 04/27/19 09:00 04/29/19 08:28 Aspirin Ec PO 650 mg DAILY [facility] Administration Celecoxib 200 mg 04/26/19 17:00 04/29/19 08:29 Celebrex PO 200 mg BIDWM [facility] Administration Diazepam 5 mg 04/26/19 13:48 04/28/19 21:03 Valium Po PO 5 mg Q8H PRN Administration Spasms Diphenhydramine HCl 25 mg 04/26/19 13:48 04/27/19 00:20 Benadryl Inj IV PUSH 25 mg Q6H PRN Administration Itching Docusate Sodium 100 mg 04/26/19 17:00 04/29/19 08:28 Colace Capsule PO 100 mg BID [facility] Administration Ezetimibe 10 mg 04/27/19 09:00 04/29/19 08:28 Zetia PO 10 mg DAILY [facility] Administration Furosemide 20 mg 04/27/19 09:00 04/29/19 08:28 Lasix Tablet PO 20 mg DAILY [facility] Administration Hydrochlorothiazide 25 mg 04/27/19 09:00 04/29/19 08:28 Hydrochlorothiazide PO 25 mg DAILY [facility] Administration Lisinopril 20 mg 04/27/19 09:00 04/29/19 08:29 Prinivil PO 20 mg DAILY [facility] Administration Morphine Sulfate 4 mg 04/26/19 13:48 04/27/19 04:56 Morphine Sulfate Inj IV PUSH 4 mg Q2H PRN Administration Breakthrough pain rated 7-10 Ondansetron HCl 4 mg 04/26/19 13:48 04/26/19 22:10 Zofran Inj IV PUSH 4 mg Q4H PRN Administration Nausea And Vomiting Oxycodone HCl 5 mg 04/28/19 11:22 04/28/19 14:45 Roxicodone Ir Tablet PO 5 mg Q4H PRN Administration Pain Rated 7-10 Pantoprazole Sodium 40 mg 04/26/19 21:00 04/29/19 08:28 Protonix PO 40 mg Q12HR [facility] Administration Radiology Results: ITS Impressions Knee X-Ray 04/26/19 14:17 IMPRESSION: 1. Total left knee arthroplasty in near-anatomic alignment. Chest X-Ray 04/28/19 12:34 IMPRESSION: No acute cardiopulmonary findings. Quality VTE Prophylaxis VTE prophylaxis: mechanical ordered
--- NOTE | 2019-04-29 10:58 | PM.DS ---
DS: Diagnosis Admitting Diagnosis Admitting Diagnosis: Unilateral primary osteoarthritis, unspecified knee DS: Summary Hospital Course Reason for hospitalization: R TKA Hospital Course: GOOD Status at Discharge Cognitive/behavioral status at discharge: GOOD Functional status at discharge: uses cane/walker Time Spent with Patient Time attestation: Total time spent providing and/or coordinating discharge services: Time spent: Less than 30 minutes Discharge Plan Discharge Attending physician on discharge: Garrett López Consulting providers: Emiyl Ortez Discharging Clinician: Garrett López Anticipated Discharge Date/Time: 04/28/19 12:00 Patient Disposition: Home Health Service Activity: may shower, no driving and follow weight bearing status Diet: as tolerated Wound Care Instructions: keep dressing dry and other - see discharge instructions Discharge Instructions: Orthopedic Discharge Instructions: Your dressing will be changed prior to your discharge. You will be sent with one additional dressing to be changed by the home health RN in 5 days. Your amadou will be removed on the 14th day after surgery. You may shower but DO NOT submerge in a bath tub until released by Dr. López. Please walk with a walker at all times until released by Dr. López. Do not drive until released by Dr. López. Continue use of your ice machine. Protect your skin with a sheet/towel prior to applying ice machine. Your medications have been called into your pharmacy. Follow up as previously scheduled, your appointment is also indicated in these instructions. Contact our office with any questions or concerns at [phone]. Per Care Coordination, pt. will discharge home with [facility] for continued Pt/Ot. Patient Instructions: Antibiotic Form, Pain Management Older Adults (DC), Knee Replacement (DC) Stand Alone Forms: General Discharge Information Follow-up/Referrals: Garrett López MD [Physician] - 05/18/19 10:00 am (You have a follow up appointment scheduled with Dr. López on 05/18 at 10:00 AM. Please contact our office with questions/concerns at [phone] in the interim. See discharge instructions for further details. ) Discharge Medications: New celecoxib [Celebrex] 200 mg Capsule 200 mg PO BIDWM 14 Days Qty: 28 RF: 0 oxycodone-acetaminophen 5-325 mg Tablet 1 tablet PO Q4-6H PRN (Reason: Pain Rated 4-6) Qty: 56 RF: 0 aspirin 325 mg Tablet,Delayed Release (Dr/Ec) 650 mg PO DAILY 21 Days Qty: 42 RF: 0 docusate sodium 100 mg Capsule 100 mg PO BID 30 Days Qty: 60 RF: 0 Continued cetirizine [Zyrtec] 10 mg Tablet 10 mg PO DAILY RF: 0 lisinopril 20 mg Tablet 20 mg PO DAILY RF: 0 omeprazole 40 mg Capsule,Delayed Release(Dr/Ec) 40 mg PO DAILY RF: 0 sildenafil [Viagra] 100 mg Tablet 100 mg PO DAILY PRN (Reason: ED) RF: 0 hydrochlorothiazide 25 mg Tablet 25 mg PO DAILY RF: 0 furosemide [Lasix] 20 mg Tablet 20 mg PO DAILY RF: 0 fluticasone propionate [Flonase Allergy Relief] 50 mcg/actuation [place],Suspension 1 spray INTRANASAL BID PRN (Reason: Congestion) RF: 0 metaxalone 800 mg Tablet 800 mg PO TID PRN (Reason: PAIN) RF: 0 ezetimibe 10 mg Tablet 10 mg PO DAILY RF: 0 Held aspirin [Aspir-81] 81 mg Tablet,Delayed Release (Dr/Ec) 81 mg PO DAILY RF: 0 Hold Instructions: Resume on 05/18/19. HOLD until finished with 325mg PO aspirin BID then resume on 05/18. Discontinued diclofenac sodium 1 % gel 2 gm TOPICAL QID PRN (Reason: inflammation) Qty: 100 RF: 0 chlorhexidine gluconate [Hibiclens] 4 % liquid 1 applic TOPICAL ONCE Qty: 3785 RF: 0 pseudoephedrine-guaifenesin [Mucinex D] 60-600 mg Tablet Extended Release 12 Hr 1 tablet PO BID PRN (Reason: Nasal Congestion) RF: 0 glucosamine sulfate [Glucosamine] 500 mg T
--- NOTE | 2019-04-29 11:09 | PM.DS ---
DS: Diagnosis Admitting Diagnosis Admitting Diagnosis: Unilateral primary osteoarthritis, unspecified knee DS: Summary Time Spent with Patient Time attestation: Total time spent providing and/or coordinating discharge services: Discharge Plan Discharge Attending physician on discharge: Garrett López Consulting providers: Emily Ortez Discharging Clinician: Garrett López Anticipated Discharge Date/Time: 04/28/19 12:00 Patient Disposition: Home Health Service Activity: may shower, no driving and follow weight bearing status Diet: as tolerated Wound Care Instructions: keep dressing dry and other - see discharge instructions Discharge Instructions: Orthopedic Discharge Instructions: Your dressing will be changed prior to your discharge. You will be sent with one additional dressing to be changed by the home health RN in 5 days. Your amadou will be removed on the 14th day after surgery. You may shower but DO NOT submerge in a bath tub until released by Dr. López. Please walk with a walker at all times until released by Dr. López. Do not drive until released by Dr. López. Continue use of your ice machine. Protect your skin with a sheet/towel prior to applying ice machine. Your medications have been called into your pharmacy. Follow up as previously scheduled, your appointment is also indicated in these instructions. Contact our office with any questions or concerns at [phone]. Per Care Coordination, pt. will discharge home with [facility] for continued Pt/Ot. Patient Instructions: Antibiotic Form, Pain Management Older Adults (DC), Knee Replacement (DC) Stand Alone Forms: General Discharge Information Follow-up/Referrals: Garrett López MD [Physician] - 05/18/19 10:00 am (You have a follow up appointment scheduled with Dr. López on 05/18 at 10:00 AM. Please contact our office with questions/concerns at [phone] in the interim. See discharge instructions for further details. ) Discharge Medications: New celecoxib [Celebrex] 200 mg Capsule 200 mg PO BIDWM 14 Days Qty: 28 RF: 0 oxycodone-acetaminophen 5-325 mg Tablet 1 tablet PO Q4-6H PRN (Reason: Pain Rated 4-6) Qty: 56 RF: 0 aspirin 325 mg Tablet,Delayed Release (Dr/Ec) 650 mg PO DAILY 21 Days Qty: 42 RF: 0 docusate sodium 100 mg Capsule 100 mg PO BID 30 Days Qty: 60 RF: 0 Continued cetirizine [Zyrtec] 10 mg Tablet 10 mg PO DAILY RF: 0 lisinopril 20 mg Tablet 20 mg PO DAILY RF: 0 omeprazole 40 mg Capsule,Delayed Release(Dr/Ec) 40 mg PO DAILY RF: 0 sildenafil [Viagra] 100 mg Tablet 100 mg PO DAILY PRN (Reason: ED) RF: 0 hydrochlorothiazide 25 mg Tablet 25 mg PO DAILY RF: 0 furosemide [Lasix] 20 mg Tablet 20 mg PO DAILY RF: 0 fluticasone propionate [Flonase Allergy Relief] 50 mcg/actuation [place],Suspension 1 spray INTRANASAL BID PRN (Reason: Congestion) RF: 0 metaxalone 800 mg Tablet 800 mg PO TID PRN (Reason: PAIN) RF: 0 ezetimibe 10 mg Tablet 10 mg PO DAILY RF: 0 Held aspirin [Aspir-81] 81 mg Tablet,Delayed Release (Dr/Ec) 81 mg PO DAILY RF: 0 Hold Instructions: Resume on 05/18/19. HOLD until finished with 325mg PO aspirin BID then resume on 05/18. Discontinued diclofenac sodium 1 % gel 2 gm TOPICAL QID PRN (Reason: inflammation) Qty: 100 RF: 0 chlorhexidine gluconate [Hibiclens] 4 % liquid 1 applic TOPICAL ONCE Qty: 3785 RF: 0 pseudoephedrine-guaifenesin [Mucinex D] 60-600 mg Tablet Extended Release 12 Hr 1 tablet PO BID PRN (Reason: Nasal Congestion) RF: 0 glucosamine sulfate [Glucosamine] 500 mg Tablet 1,000 mg PO DAILY RF: 0 hydrocodone-acetaminophen 7.5-325 mg Tablet 1 tablet PO Q6H PRN (Reason: PAIN) RF: 0 naproxen sodium 220 mg Tablet 440 mg PO DAILY RF: 0 turmeric root extract 500 mg Capsule
--- NOTE | 2019-04-29 11:11 | PM.DS ---
DS: Diagnosis Admitting Diagnosis Admitting Diagnosis: Unilateral primary osteoarthritis, unspecified knee DS: Summary Hospital Course Reason for hospitalization: LEFT TOTAL KNEE Time Spent with Patient Time attestation: Total time spent providing and/or coordinating discharge services: Discharge Plan Discharge Attending physician on discharge: Garrett López Consulting providers: Emily Ortez Discharging Clinician: Garrett López Anticipated Discharge Date/Time: 04/28/19 12:00 Patient Disposition: Home Health Service Activity: may shower, no driving and follow weight bearing status Diet: as tolerated Wound Care Instructions: keep dressing dry and other - see discharge instructions Discharge Instructions: Orthopedic Discharge Instructions: Your dressing will be changed prior to your discharge. You will be sent with one additional dressing to be changed by the home health RN in 5 days. Your amadou will be removed on the 14th day after surgery. You may shower but DO NOT submerge in a bath tub until released by Dr. López. Please walk with a walker at all times until released by Dr. López. Do not drive until released by Dr. López. Continue use of your ice machine. Protect your skin with a sheet/towel prior to applying ice machine. Your medications have been called into your pharmacy. Follow up as previously scheduled, your appointment is also indicated in these instructions. Contact our office with any questions or concerns at [phone]. Per Care Coordination, pt. will discharge home with [facility] for continued Pt/Ot. Patient Instructions: Antibiotic Form, Pain Management Older Adults (DC), Knee Replacement (DC) Stand Alone Forms: General Discharge Information Follow-up/Referrals: Garrett López MD [Physician] - 05/18/19 10:00 am (You have a follow up appointment scheduled with Dr. López on 05/18 at 10:00 AM. Please contact our office with questions/concerns at [phone] in the interim. See discharge instructions for further details. ) Discharge Medications: New celecoxib [Celebrex] 200 mg Capsule 200 mg PO BIDWM 14 Days Qty: 28 RF: 0 oxycodone-acetaminophen 5-325 mg Tablet 1 tablet PO Q4-6H PRN (Reason: Pain Rated 4-6) Qty: 56 RF: 0 aspirin 325 mg Tablet,Delayed Release (Dr/Ec) 650 mg PO DAILY 21 Days Qty: 42 RF: 0 docusate sodium 100 mg Capsule 100 mg PO BID 30 Days Qty: 60 RF: 0 Continued cetirizine [Zyrtec] 10 mg Tablet 10 mg PO DAILY RF: 0 lisinopril 20 mg Tablet 20 mg PO DAILY RF: 0 omeprazole 40 mg Capsule,Delayed Release(Dr/Ec) 40 mg PO DAILY RF: 0 sildenafil [Viagra] 100 mg Tablet 100 mg PO DAILY PRN (Reason: ED) RF: 0 hydrochlorothiazide 25 mg Tablet 25 mg PO DAILY RF: 0 furosemide [Lasix] 20 mg Tablet 20 mg PO DAILY RF: 0 fluticasone propionate [Flonase Allergy Relief] 50 mcg/actuation [place],Suspension 1 spray INTRANASAL BID PRN (Reason: Congestion) RF: 0 metaxalone 800 mg Tablet 800 mg PO TID PRN (Reason: PAIN) RF: 0 ezetimibe 10 mg Tablet 10 mg PO DAILY RF: 0 Held aspirin [Aspir-81] 81 mg Tablet,Delayed Release (Dr/Ec) 81 mg PO DAILY RF: 0 Hold Instructions: Resume on 05/18/19. HOLD until finished with 325mg PO aspirin BID then resume on 05/18. Discontinued diclofenac sodium 1 % gel 2 gm TOPICAL QID PRN (Reason: inflammation) Qty: 100 RF: 0 chlorhexidine gluconate [Hibiclens] 4 % liquid 1 applic TOPICAL ONCE Qty: 3785 RF: 0 pseudoephedrine-guaifenesin [Mucinex D] 60-600 mg Tablet Extended Release 12 Hr 1 tablet PO BID PRN (Reason: Nasal Congestion) RF: 0 glucosamine sulfate [Glucosamine] 500 mg Tablet 1,000 mg PO DAILY RF: 0 hydrocodone-acetaminophen 7.5-325 mg Tablet 1 tablet PO Q6H PRN (Reason: PAIN) RF: 0 naproxen sodium 220 mg Tablet
--- NOTE | 2019-04-29 13:28 | PC.NURSE ---
At 0830 Patient sitting in his chair in the room, Dr. Nunes just left from examining him, this nurse proceeded to give medication after performing vital signs, wnl vital signs, and the patient suddenly complained of feeling weak, dizzy, nauseated, and that he might pass out. Had patient lean over, do slow deep breaths until he can be transferred safely to the bed. With staff assist this nurse transferred the patient to the bed, elevated his legs and lowered his head, patient states he is starting to feel better and that this is an occasional chronic condition for five years. Dr. Nunes notified and came to bedside to examine. Raised the patient's head after he stated he felt better and gave medications. 1045 Dr. López notified of episode when he made rounds. Patient states symptoms resolved in 15-20 minutes. No further complaints.
[2019-04-29] MEDS: DIAZEPAM 5 MG TABLET PO (21:27)
[2019-04-30] VITALS: PULSE 85
[2019-04-30 04:00] VITALS: PULSE 76
[2019-04-30] MEDS: ACETAMINOPHEN 500 MG TABLET 1000 MG PO ×2 (05:56→11:47)
[2019-04-30 06:18] VITALS: BP 118/73; PULSE 82; RESP 20; TEMP 37.4; O2SAT 97
[2019-04-30 08:00] VITALS: PULSE 119
[2019-04-30] MEDS: CELECOXIB 200 MG CAPSULE PO (08:32)
[2019-04-30] MEDS: PANTOPRAZOLE 40 MG TABLET PO (08:32)
[2019-04-30] MEDS: EZETIMIBE 10 MG TABLET PO (08:32)
[2019-04-30] MEDS: hydroCHLOROthiazide 25 MG TABLET PO (08:32)
[2019-04-30] MEDS: ASPIRIN 325 MG ENTERIC TABLET 650 MG PO (08:32)
[2019-04-30] MEDS: DOCUSATE SODIUM 100 MG CAPSULE PO (08:32)
[2019-04-30] MEDS: lisinopriL 20 MG TABLET PO (08:32)
[2019-04-30] MEDS: FUROSEMIDE 20 MG TABLET PO (08:32)
--- NOTE | 2019-04-30 12:06 | PM.IMPN ---
Progress Note: A&P Assessment and Plan (1) Vasovagal syncope: Code(s): R55 - Syncope and collapse Status: Acute Assessment and Plan: Patietn with chronic events with nausea requiring him to lie down , use cold wash cloth and have ffet elevated until symptoms pass. he has these sx every othe month on average. Last stress test was about 8 years ago. Echo in the chart fro October showing EF 65% with DD grade 1. He may be having more episodes related to pain. Tele results noted. Continue tele monitoring. (2) Total knee replacement status: Qualifiers: Laterality: left Qualified Code(s): Z96.652 - Presence of left artificial knee joint Code(s): Z96.659 - Presence of unspecified artificial knee joint Status: Acute Assessment and Plan: POD #4. Patient's pain better today. Tolerating therapy better. Continue ASA for anticoagulation. Continue PT/OT as tolerated. (3) HTN (hypertension) with goal to be determined: Code(s): I10 - Essential (primary) hypertension Status: Chronic Assessment and Plan: BP reviewed on 04/30/19. BP well controlled. Continue with HCTZ, lisinopril and Lasix. (4) Hyperlipidemia: Code(s): E78.5 - Hyperlipidemia, unspecified Status: Chronic Assessment and Plan: Stable. Zetia resumed. Can't take statins due to leg cramps. (5) Sleep apnea: Code(s): G47.30 - Sleep apnea, unspecified Status: Acute Assessment and Plan: Patient complaint with CPAP. Continue the same. Subjective Date/time seen: 04/30/19 12:06 Interval history: 68yo male here for an elective left TKA on 04/26/19. Patietn not discharged due to recurrent symptoms of nausea better with lying down. He had anothe episode this morning. No CP. Knee pain much better. Eating okay. No CP or palpitations. Exam Narrative: Exam Narrative: Gen - NARD sitting at the side of bed Chest - CTA bilat, nml RR CV - RRR S1/S2: Tele showing 4 beat run of NSVT Abd - soft, NT/ND, +BS Ext - Left knee dressing clean and dry. slight erythema around left knee. pitting edema to the left LE. Neuro - nonfocal. Patient appears to be in good spirits. Skin - warm and dry Objective Data Vital Signs Vital Signs: Vital Signs - 24 hr 04/29/19 13:34 04/29/19 16:00 04/29/19 16:33 Temperature 97.7 F Pulse Rate 82 89 Respiratory Rate 16 Blood Pressure 108/70 Pulse Oximetry 97 92 04/29/19 20:54 04/29/19 21:30 04/29/19 22:15 Temperature 98.4 F Pulse Rate 82 86 79 Respiratory Rate 16 20 Blood Pressure 127/72 Pulse Oximetry 92 98 97 04/30/19 00:00 04/30/19 04:00 04/30/19 06:18 Temperature 99.4 F Pulse Rate 85 76 82 Respiratory Rate 20 Blood Pressure 118/73 Pulse Oximetry 97 Intake/Output Intake/Output: Intake & Output 04/27/19 04/28/19 04/29/19 04/30/19 23:59 23:59 23:59 23:59 Intake Total 2310 2030 3430 790 Output Total 2550 1600 800 650 Balance -126 599 4350 140 Meds/Results Medications: Active Medications Generic Name Dose Route Start Last Admin Trade Name Freq PRN Reason Stop Dose Admin Acetaminophen 1,000 mg 04/28/19 12:00 04/30/19 11:47 Tylenol Tablet PO 1,000 mg Q6H MINH Administration Aspirin 650 mg 04/27/19 09:00 04/30/19 08:32 Aspirin Ec PO 650 mg DAILY MINH Administration Celecoxib 200 mg 04/26/19 17:00 04/30/19 08:32 Celebrex PO 200 mg BIDWM MINH Administration Diazepam 5 mg 04/26/19 13:48 04/29/19 21:27 Valium Po PO 5 mg Q8H PRN Administration Spasms Diphenhydramine HCl 25 mg 04/26/19 13:48 04/27/19 00:20 Benadryl Inj IV PUSH 25 mg Q6H PRN Administration Itching Docusate Sodium 100 mg 04/26/19 17:00 04/30/19 08:32 Colace Capsule PO 100 mg BID MINH Administration Ezetimibe 10 mg 04/27/19 09:00 04/30/19 08:32 Zetia PO 10 mg DAILY MINH Administration Furosemide 20 mg
== END 2019-04-30 12:40 | DRG 470 ==
LOC: ANH3MEDSUR 15:53
PROVIDERS: Anesthesiology; Family Medicine; Nurse Practitioner; Admitting Provider Orthopaedic Surgery; PCP Family Medicine; Visit Provider Internal Medicine
PROC: 0SRD0J9 Replacement of Left Knee Joint with Synthetic Substitute, Cemented, Open Approach (ICD-10-PCS; CPT 27447; principal; 2019-04-26 10:30)
DX: M17.12 Unilateral primary osteoarthritis, left knee (principal); K21.9 Gastro-esophageal reflux disease without esophagitis; G47.30 Sleep apnea, unspecified; E66.9 Obesity, unspecified; Z68.34 Body mass index [BMI] 34.0-34.9, adult; I10 Essential (primary) hypertension; E78.5 Hyperlipidemia, unspecified; I25.10 Atherosclerotic heart disease of native coronary artery without angina pectoris; R55 Syncope and collapse
CPT/HCPCS: 36415; 71046; 73560; 80048; 83735; 85025; 85027; 86850; 86900; 86901; 93005; 97110; 97116; 97161; 97165; 97530; 97535; A9270; C1713; C1776; J0131; J0330; J0690; J1100; J1170; J1200; J1741; J2250; J2270; J2405; J2704; J3010; J3370; J7120

== ENCOUNTER 2019-10-21 19:47 | Emergency (ER) | payer MEDICARE, OTHER, SELFPAY ==
--- NOTE | ~2019-10-21 | XR_ITS ---
EXAMINATION: XR chest 1V portable 10/21/2019 20:28 INDICATION: Dizziness. Near syncope. Hypertension. PROCEDURE: AP view of the chest COMPARISON: 04/28/2019 FINDINGS: The lungs are clear. The cardiomediastinal silhouette is within normal limits. There are no pleural effusions. There is no pneumothorax suspected. IMPRESSION: 1: NO ACUTE CARDIOPULMONARY DISEASE. Reviewed, dictated and finalized at location A.
--- NOTE | ~2019-10-21 | CT_ITS ---
EXAMINATION: CT BRAIN W/O DATE: 10/21/2019 20:27 INDICATION: Dizziness TECHNIQUE: Computed tomography (CT) of the head was performed without intravenous contrast. The dose- length product was 605.33 mGy-cm. The mA was adjusted according to patient size. Iterative reconstruc tion technique was employed. COMPARISON: No prior studies for comparison. FINDINGS: Normal brain parenchymal volume for age. Normal prince-white differentiation. No acute intrac ranial hemorrhage, infarction, mass or mass effect. No ventriculomegaly or midline shift. Midline sagittal images demonstrate a normal corpus callosum, c raniovertebral junction and sella turcica. Basilar cisterns are patent. Paranasal sinuses and mastoids are pneumatized. No depressed skull fractures. IMPRESSION: 1. No acute intracranial abnormality. Reviewed, dictated and finalized at location A.
[2019-10-21 19:53] VITALS: BP 155/94; PULSE 88; RESP 23; TEMP 36.4; O2SAT 99
--- NOTE | 2019-10-21 19:54 | ECG_ITS ---
Measurements Intervals Shepherd Rate: 68 P: 30 LA: 168 QRS: 5 QRSD: 97 T: 4 QT: 401 QTc: 426 Interpretive Statements SINUS RHYTHM BASELINE ARTIFACT- I, III, AVL NORMAL ECG Electronically Signed On 10-21-2019 19:56:47 CDT by Michael Larios D.O.
--- NOTE | 2019-10-21 19:55 | ED.DIZZY ---
HPI - Dizziness General Chief Complaint: Syncope Stated Complaint: near syncope Source: RN notes reviewed History of Present Illness HPI Narrative: Patient presents emergency department from home via EMS for near syncopal episode. Patient states he was outside standing on his porch having a beer when he began to become dizzy and feels like he was going to pass out and sweaty. States that time he sat down and never fully passed out. He states that this time he feels fine and has no symptoms. He denies any vision changes numbness or tingling in extremities chest pain shortness of breath abdominal pain or any other symptoms. States he is had a total of 1-1/2 beers today. He denies any other symptoms at this time Related Data Home Medications Medication Instructions Recorded Confirmed aspirin [Aspir-81] 81 mg PO DAILY 04/06/19 04/26/19 cetirizine [Zyrtec] 10 mg PO DAILY 04/06/19 04/26/19 ezetimibe 10 mg PO DAILY 04/06/19 04/26/19 fluticasone propionate [Flonase 1 spray INTRANASAL BID PRN 04/06/19 04/26/19 Allergy Relief] furosemide [Lasix] 20 mg PO DAILY 04/06/19 04/26/19 hydrochlorothiazide 25 mg PO DAILY 04/06/19 04/26/19 lisinopril 20 mg PO DAILY 04/06/19 04/26/19 metaxalone 800 mg PO TID PRN 04/06/19 04/26/19 omeprazole 40 mg PO DAILY 04/06/19 04/26/19 sildenafil [Viagra] 100 mg PO DAILY PRN 04/06/19 04/06/19 Allergies Allergy/AdvReac Type Severity Reaction Status Date / Time amoxicillin Allergy Unknown Other Verified 08/17/19 10:13 cyclobenzaprine AdvReac Unknown Other Verified 08/17/19 10:13 [From Flexeril] [id number] Reductase AdvReac Unknown Joint Pain Verified 08/17/19 10:13 Inhibitor sulfamethoxazole AdvReac Unknown Nausea and Verified 08/17/19 10:13 Vomiting Review of Systems Review of Systems: Narrative: Gen.: Denies fevers or chills Eyes: Denies eye pain or visual change ENT: Denies congestion Respiratory: Denies shortness of breath or cough CV: Denies chest pain reports near syncope GI: Denies abdominal pain nausea, emesis or diarrhea denies burning, urgency, frequency or hematuria Musculoskeletal: Denies back pain or muscle pain Neuro: Denies numbness, tingling, weakness or focal weakness Skin: Denies rash Except as documented, all other systems reviewed and negative [facility] Past Medical History Medical History Arthritis Bilateral knee pain CAD (coronary artery disease) Chronic GERD Degenerative joint disease of knee GERD with apnea Herniated lumbar intervertebral disc HTN (hypertension) with goal to be determined Hyperlipidemia Recent URI Sleep apnea Vision abnormalities Social History Social History Smoking status: Never smoker Alcohol intake: current Exam Narrative: Exam Narrative: APPEARANCE: No acute distress, nontoxic, resting in bed EYES: EOMI HEENT: Normocephalic, atraumatic, OMM RESPIRATORY: No respiratory distress Clear to auscultation bilaterally with no rhonchi wheezing or rales. CARDIOVASCULAR: Regular rate and rhythm without murmurs rubs or gallops. ABDOMINAL: Soft, nontender, nondistended, no rebound or guarding MUSCULOSKELETAl: Moves all extremities. No clubbing, cyanosis or edema. NEURO: Awake and alertx 3. Following commands, speech normal, no focal deficits SKIN:: Warm, dry. No rashes lesions or abrasions PSYCHIATRIC: Normal affect/mood, Course Course Emergency Course: Patient had mild dizziness when getting up and ambulating and was given Antivert with resolution of dizziness Discussed with patient results of workup and diagnosis. Discussed need for follow-up with primary care, proper use of medication, and reasons to return to the emergency department. Patient understands and agrees to current treatment plan Vital Signs Vital signs: Vital Signs Temperature 97.6 F 10/21/19 19:53 Pulse Rate 88 10/21/19 19:53 Respiratory Rat
[2019-10-21] MEDS: SODIUM CHLORIDE 0.9% IV 1,000 ML 999 ML IV CONT (20:02)
[2019-10-21 20:17] LABS: Basophils Percent Auto 0.5 % (0.2-1.2); Eosinophils Absolute Auto 0.1 K/mm3 (0-0.3); Hematocrit 45.2 % (42.0-52.0); Hemoglobin 15.2 g/dL (14.0-18.0); Immature Granulocyte Absolute 0.05 K/mm3 (0.00-0.031); Immature Granulocyte Percent A 0.6 % (0-0.5); Lymphocytes Absolute Auto 1.32 K/mm3 (0.9-3.2); Lymphocytes Percent Auto 15.9 % (18.3-44.2); Mean Corpuscular HGB Conc 33.6 g/dl (32-36); Mean Corpuscular Hemoglobin 30.5 pg (26-34); Mean Corpuscular Volume 90.6 fl (80-100); Mean Platelet Volume 10.6 fl (7.4-10.4); Monocytes Absolute Auto 0.8 K/mm3 (0.1-0.6); Monocytes Percent Auto 9.1 % (2.6-8.5); Neutrophils Absolute Auto 6.1 K/mm3 (1.3-6.7); Neutrophils Percent Auto 72.9 % (45.5-73.1); Platelet Count Result 207 k/mm3 (150-375); Red Blood Count 4.99 M/mm3 (4.6-6.20); Red Cell Distribution Width 13.6 % (11.5-14.5); White Blood Count 8.3 K/mm3 (4.5-10.0)
[2019-10-21 20:24] LABS: Add Urine Microscopic? NO; Appearance Urine Clear (Clear); Bilirubin Urine Negative (Negative); Blood Urine Negative (Negative); Color Urine Yellow (Yellow); Glucose Urine UA Negative (Negative); Ketones Urine Negative (Negative); Leukocyte Esterase Ur Negative LEU/UL (Negative); Nitrate Urine Negative (Negative); Protein Urine Negative (Negative); Specific Grav Ur 1.015 (1.001-1.035); Urobilinogen Urine Negative mg/dL (<2.0)
[2019-10-21 20:29] LABS: Ethanol < 10 mg/dL (<10)
[2019-10-21 20:30] LABS: Alanine Aminotransferase 23 U/L (4-50); Albumin Level 4.1 g/dL (3.5-5.1); Alkaline Phosphatase 60 U/L (38-126); Anion Gap 12.3 mmol/L (7-16); Aspartate Amino Transferase 27 U/L (17-59); Bilirubin,Total 0.5 mg/dL (0.2-1.3); Blood Urea Nitrogen 29 mg/dL (9-20); Carbon Dioxide 27 mmol/L (22-30); Chloride 100 mmol/L (98-107); Estimated Glomerular Filt Rate 60; Glucose 198 mg/dL (75-110); Potassium 4.3 mmol/L (3.4-5.0); Sodium 135 mmol/L (137-145)
[2019-10-21 20:31] LABS: Partial Thromboplastin Time 21.9 SECONDS (22.3-36.8); Prothrombin Time 12.4 Seconds (11.1-14.7)
[2019-10-21 20:42] LABS: Troponin I < 0.012 ng/mL (0.000-0.034)
[2019-10-21 20:46] VITALS: BP 129/82; PULSE 77; RESP 16; O2SAT 97
[2019-10-21 22:08] VITALS: BP 144/84; BP 147/96; BP 167/95; PULSE 64; PULSE 65; PULSE 72
[2019-10-21 22:16] VITALS: BP 134/79; PULSE 70; RESP 19; O2SAT 99
[2019-10-21] MEDS: MECLIZINE HCL 12.5 MG TABLET PO (22:19)
[2019-10-21 23:41] LABS: Troponin I < 0.012 ng/mL (0.000-0.034)
[2019-10-21 23:59] VITALS: BP 129/86; PULSE 76; RESP 19; O2SAT 99
== END 2019-10-22 00:01 | disposition home or self-care (01) ==
PROVIDERS: Emergency Provider Emergency Medicine; PCP Family Medicine
DX: R55 Syncope and collapse (principal); M19.90 Unspecified osteoarthritis, unspecified site; I25.10 Atherosclerotic heart disease of native coronary artery without angina pectoris; K21.9 Gastro-esophageal reflux disease without esophagitis; I10 Essential (primary) hypertension; E78.5 Hyperlipidemia, unspecified; G47.30 Sleep apnea, unspecified; Z79.82 Long term (current) use of aspirin; Z79.899 Other long term (current) drug therapy
CPT/HCPCS: 36415; 70450; 71045; 80053; 80307; 81003; 84484; 85025; 85610; 85730; 93005; 96360; 99284; A9270; J7030